=== PATIENT | female | born 1980 ===

== ENCOUNTER 2017-10-28 18:43 | Emergency (ER) | payer SELFPAY ==
[2017-10-28 18:54] VITALS: TEMP 98.2; O2SAT 100
--- NOTE | 2017-10-28 20:03 | ED PDOC ---
Upper Extremity Pain/Injury Time Seen by Provider: 10/28/17 19:42 Chief Complaint (Nursing): Upper Extremity Problem/Injury Chief Complaint (Provider): Right Arm Pain History Per: Patient Onset/Duration Of Symptoms: Days (x2 weeks) Current Symptoms Are (Timing): Still Present Additional Complaint(s): 37 y/o right hand dominant female presenting for evaluation of right sided neck and arm pain x2 weeks. 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 She reports the pain starts on the right side of her neck and radiates into right shoulder. She also reports taking Tylenol for pain, but says it did not provide adequate relief. No associated chest pain, SOB or BRADY. PMD: None Past Medical History Reviewed: Historical Data, Nursing Documentation, Vital Signs Vital Signs: Last Vital Signs Temp 98.2 F 10/28/17 18:51 Pulse 72 10/28/17 18:51 Resp 16 10/28/17 18:51 BP 117/76 10/28/17 18:51 Pulse Ox 100 10/28/17 18:51 - Medical History PMH: No Chronic Diseases - Surgical History Surgical History: No Surg Hx - Family History Family History: States: No Known Family Hx - Living Arrangements Living Arrangements: With Family - Social History Current smoker - smoking cessation education provided: No Alcohol: None Drugs: Denies - Home Medications Home Medications: Ambulatory Orders Medication Instructions Recorded Cyclobenzaprine [Cyclobenzaprine 10 mg PO TID PRN #20 tab 10/28/17 HCl] Naproxen [Naprosyn] 500 mg PO BID #20 tab 10/28/17 - Allergies Allergies/Adverse Reactions: Allergies Allergy/AdvReac Type Severity Reaction Status Date / Time No Known Allergies Allergy Verified 10/28/17 18:51 Review of Systems ROS Statement: Except As Marked, All Systems Reviewed And Found Negative Cardiovascular: Negative for: Chest Pain Respiratory: Negative for: Shortness of Breath, SOB with Exertion Musculoskeletal: Positive for: Neck Pain (right sided), Arm Pain (right) Neurological: Negative for: Headache, Dizziness Physical Exam - Reviewed Nursing Documentation Reviewed: Yes Vital Signs Reviewed: Yes - Physical Exam Appears: Positive for: Well, Non-toxic, No Acute Distress Head Exam: Positive for: ATRAUMATIC, NORMAL INSPECTION, NORMOCEPHALIC Skin: Positive for: Normal Color. Negative for: Rash Eye Exam: Positive for: Normal appearance Neck: Positive for: Supple. Negative for: Normal (tenderness and muscle spasms to the right lateral neck, full ROM with pain) Cardiovascular/Chest: Positive for: Regular Rate, Rhythm, Chest Non Tender Respiratory: Positive for: Normal Breath Sounds. Negative for: Wheezing, Respiratory Distress Back: Negative for: Vertebral Tenderness Extremity: Positive for: Normal ROM (full ROM of the right shoulder, elbow and wrist with no tenderness, swelling or sensory deficits). 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 Negative for: Motor/Sensory Deficits, Aphasia, Facial Droop - Laboratory Results Urine POC: Negative - ECG O2 Sat by Pulse Oximetry: 100 (RA) Pulse Ox Interpretation: Normal - Other Rad X-ray cervical spine and right shoulder x-rays X-Ray: Interpreted by Me, Viewed By Me X-Ray Interpretation: no fx, no dis Medical Decision Making Medical Decision Makin:13 Initial Impression: 42 y/o female with right sided neck and right shoulder pain Plan: --Toradol 30mg IM --Ultram 50mg PO --X-Ray Cervical spine --X-Ray Right shoulder Patient reports improvement to pain after meds given. She is aware of x-ray results, all questions answered. Rx naprosyn and flexeril given. Advised rest and follow up with clinic in 2-3 days. Sling declined. Scribe Attestation: Documented by Ahsan Senior, acting as a scribe for Aileen Amsellem, PA-C. Provider Scribe Attestation: All medical record entries made by the Scribe were at my direction and personally dictated by me. I have reviewed the chart and agree that the record accurately reflects my personal performance of the history, physical exam, medical decision making, and the department course for this patient. I have also personally directed, reviewed, and agree with the discharge instructions and disposition. Disposition - Clinical Impression Clinical Impression: Shoulder sprain, Neck sprain - Patient ED Disposition Is Patient to be Admitted: No Counseled Patient/Family Regarding: Studies Performed, Diagnosis, Need For Followup, Rx Given - Disposition Referrals: [facility] [Outside] Disposition: Routine/Home Disposition Time: 21:50 Condition: IMPROVED Additional Instructions: Rest affected area and avoid heavy lifting. Take prescription meds as directed as needed for pain. Follow-up in 2-3 days. Prescriptions: Cyclobenzaprine [Cyclobenzaprine HCl] 10 mg PO TID PRN #20 tab PRN Reason: Muscle Spasm Naproxen [Naprosyn] 500 mg PO BID #20 tab Instructions: Cervical Muscle Strain, Shoulder Sprain Forms: [employer] (Serbian), [facility] ED School/Work Excuse
[2017-10-28 22:07] VITALS: BP 117/64; PULSE 83; RESP 18
--- NOTE | 2017-10-29 10:43 | RAD ---
PROCEDURE: Radiographs of the Right Shoulder HISTORY: pain COMPARISON: No prior. FINDINGS: BONES: Normal. No fracture. JOINTS: Normal. Glenohumeral and acromioclavicular joints preserved. No osteoarthritis. SOFT TISSUES: Normal. OTHER FINDINGS: None. IMPRESSION: Normal radiographs of the right shoulder.
--- NOTE | 2017-10-29 10:45 | RAD ---
PROCEDURE: Cervical Spine Radiographs. HISTORY: Pain. COMPARISON: None. FINDINGS: BONES: Alignment maintained. No fracture. Dens Intact. Left C6 uncovertebral mild hypertrophy DISC SPACES: Normal. SOFT TISSUES: Normal. No prevertebral soft tissue swelling. OTHER FINDINGS: None. IMPRESSION: No fracture lytic lesion.Left C6 uncovertebral mild hypertrophy -consistent with mild early degenerative change
== END 2017-10-28 22:08 | disposition home or self-care (01) ==
LOC: H.ER 18:43
DX: S43.401A Unspecified sprain of right shoulder joint, initial encounter (principal); S13.9XXA Sprain of joints and ligaments of unspecified parts of neck, initial encounter; X50.9XXA Other and unspecified overexertion or strenuous movements or postures, initial encounter; Y99.0 Civilian activity done for income or pay
CPT/HCPCS: 72040; 73030; 81025; 96372; 99283; J1885

== ENCOUNTER 2017-12-16 16:28 | Emergency (ER) | payer SELFPAY ==
[2017-12-16 16:35] VITALS: BP 122/65; PULSE 88; RESP 14; O2SAT 100
[2017-12-16 16:40] VITALS: TEMP 98.8
--- NOTE | 2017-12-16 17:33 | ED PDOC ---
HPI: Abdomen Time Seen by Provider: 12/16/17 17:02 Chief Complaint (Nursing): Abdominal Pain Chief Complaint (Provider): Pelvic Pain History Per: Patient History/Exam Limitations: no limitations Onset/Duration Of Symptoms: Days (x 3) Quality Of Discomfort: Cramping, "Pain" Associated Symptoms: Loss Of Appetite (mild) Additional Complaint(s): 37 year old female presents to the ED with constant, cramping pelvic pain for the last 3 days associated with tingling sensation to b/l nipples and breast sensitivity. Patient reports she had an IUD placed in early November and intermittent vaginal bleeding since then with the last episode being 1 week ago. Denies vaginal discharge, bleeding, urinary symptoms and GI symptoms. Also reporting rash to chest for 3 weeks, multiple lesions and increasing. Itchy and red. PMD: [facility] Past Medical History Reviewed: Historical Data, Nursing Documentation, Vital Signs Vital Signs: Last Vital Signs Temp 98.8 F 12/16/17 16:34 Pulse 88 12/16/17 16:34 Resp 14 12/16/17 16:34 BP 122/65 12/16/17 16:34 Pulse Ox 100 12/16/17 18:41 - Medical History PMH: No Chronic Diseases - Surgical History Surgical History: No Surg Hx - Family History Family History: States: Unknown Family Hx - Social History Current smoker - smoking cessation education provided: No Alcohol: None Drugs: Denies - Immunization History Hx Tetanus Toxoid Vaccination: (Denies) - Home Medications Home Medications: Ambulatory Orders Medication Instructions Recorded Cyclobenzaprine [Cyclobenzaprine 10 mg PO TID PRN #20 tab 10/28/17 HCl] Naproxen [Naprosyn] 500 mg PO BID #20 tab 10/28/17 Clotrimazole 1% Cream [Lotrimin 1%] 1 appl TP BID #1 tube 12/16/17 Ketorolac Tromethamine [Toradol] 10 mg PO Q8 PRN #30 tab 12/16/17 - Allergies Allergies/Adverse Reactions: Allergies Allergy/AdvReac Type Severity Reaction Status Date / Time No Known Allergies Allergy Verified 10/28/17 18:51 Review of Systems ROS Statement: Except As Marked, All Systems Reviewed And Found Negative Gastrointestinal: Negative for: Diarrhea, Constipation, Hematochezia Genitourinary Female: Positive for: Pelvic Pain (associated with tingling sensation to b/l nipples and increases breast sensitivity). Negative for: Dysuria, Incontinence, Vaginal Discharge, Vaginal Bleeding Physical Exam - Reviewed Nursing Documentation Reviewed: Yes Vital Signs Reviewed: Yes - Physical Exam Appears: Positive for: Well, No Acute Distress Head Exam: Positive for: ATRAUMATIC, NORMAL INSPECTION, NORMOCEPHALIC Skin: Positive for: Warm, Dry, Rash (circular and scaly erythemaous lesions to RIGHT upper chest and LEFT shoulder) Eye Exam: Positive for: EOMI, PERRL ENT: Negative for: Pharyngeal Erythema, Tonsillar Exudate Neck: Positive for: Painless ROM, Supple Cardiovascular/Chest: Positive for: Regular Rate, Rhythm, Chest Non Tender. Negative for: Murmur Respiratory: Positive for: Normal Breath Sounds. Negative for: Wheezing Gastrointestinal/Abdominal: Positive for: Normal Exam, Soft, Tenderness (to palpation suprapubic area). Negative for: Mass, Guarding, Rebound Pelvic Exam: Positive for: External Exam Normal, Speculum Exam Normal, Tender Adnexa (left), Tender Uterus, Other (IUD strings visible in OS without bleeding) Back: Positive for: Normal Inspection. Negative for: Vertebral Tenderness Extremity: Positive for: Normal ROM. Negative for: Deformity Lymphatic: Negative for: Adenopathy Neurologic/Psych: Positive for: Alert, resistor coater II-XII (intact), Oriented (x3). Negative for: Motor/Sensory Deficits, Aphasia - ECG O2 Sat by Pulse Oximetry: 100 (RA) Pulse Ox Interpretation: Normal Medical Decision Making Medical Decision Making: Time: 17:11 Impression: Pelvic pain, tinea corporis Ddx include but not limited to adverse reaction to IUD, PID, Ovarian cyst, fibroid, IUD migration Initial Plan: --U preg --U dip --Chlamydia --Toradol 15 mg IM --Tylenol 975 mg PO --genital cx --Urine cx --UA --Transvag US Building Analyst/Supervisor for pelvic exam is FRANCES Merritt. Transvaginal US FINDINGS: UTERUS: Measures 7.1 x 4.0 x 5.0 cm. Normal in size and appearance. No fibroid or other mass lesion seen. ENDOMETRIUM: Measures 9 mm in diameter. Intrauterine device positioned centrally within the endometrial echo complex. CERVIX: No cervical abnormality identified. RIGHT OVARY: Measures 3.4 x 1.7 x 3.1 cm. No solid mass. Normal flow. LEFT OVARY: Measures 3.1 x 2.3 x 3.7 cm. No solid mass. Normal flow. FREE FLUID: No significant free fluid noted. OTHER FINDINGS: None. IMPRESSION: Intrauterine device appropriately positioned. Otherwise unremarkable examination. DW pt findings and plan of care. nsaids, lotrimin, f/u whc. Scribe Attestation: Documented by Juana Walden, acting as a scribe for Aileen Morrison MD Provider Scribe Attestation: All medical record entries made by the Scribe were at my direction and personally dictated by me. I have reviewed the chart and agree that the record accurately reflects my personal performance of the history, physical exam, medical decision making, and the department course for this patient. I have also personally directed, reviewed, and agree with the discharge instructions and disposition. Disposition - Clinical Impression Clinical Impression: Pelvic pain - Disposition [facility] ([facility]) Disposition: Routine/Home Disposition Time: 18:00 Condition: STABLE Prescriptions: Clotrimazole 1% Cream [Lotrimin 1%] 1 appl TP BID #1 tube Ketorolac Tromethamine [Toradol] 10 mg PO Q8 PRN #30 tab PRN Reason: PAIN Instructions: Ringworm (DC), Acute Pelvic Pain (DC), Intrauterine Devices (IUD) Forms: [employer] (Persian) Print Language: CROATIAN
[2017-12-16 17:53] LABS: SQUAMOUS EPITHIAL 10 /hpf (0-5); URINE BACTERIA RARE (<OCC); URINE BILIRUBIN NEGATIVE (NEGATIVE); URINE BLOOD NEGATIVE (NEGATIVE); URINE CLARITY CLOUDY (Clear); URINE COLOR YELLOW (YELLOW); URINE GLUCOSE (UA) NEG (Normal); URINE LEUKOCYTE ESTERASE SMALL Leu/uL (Negative); URINE PROTEIN NEGATIVE (NEGATIVE); URINE UROBILINOGEN 0.2-1.0 mg/dL (0.2-1.0)
--- NOTE | 2017-12-16 18:24 | US ---
HISTORY: pelvic pain recent IUD placement COMPARISON: None available. TECHNIQUE: 11/19/2010 FINDINGS: UTERUS: Measures 7.1 x 4.0 x 5.0 cm. Normal in size and appearance. No fibroid or other mass lesion seen. ENDOMETRIUM: Measures 9 mm in diameter. Intrauterine device positioned centrally within the endometrial echo complex. CERVIX: No cervical abnormality identified. RIGHT OVARY: Measures 3.4 x 1.7 x 3.1 cm. No solid mass. Normal flow. LEFT OVARY: Measures 3.1 x 2.3 x 3.7 cm. No solid mass. Normal flow. FREE FLUID: No significant free fluid noted. OTHER FINDINGS: None. IMPRESSION: Intrauterine device appropriately positioned. Otherwise unremarkable examination.
== END 2017-12-16 18:48 | disposition home or self-care (01) ==
LOC: H.ER 16:28
DX: R10.2 Pelvic and perineal pain (principal); N76.0 Acute vaginitis; B96.20 Unspecified Escherichia coli [E. coli] as the cause of diseases classified elsewhere; B35.4 Tinea corporis
CPT/HCPCS: 76830; 81003; 81025; 87070; 87086; 87181; 87491; 87591; 96372; 99283; J1885

== ENCOUNTER 2018-05-13 06:04 | Emergency (ER) | payer SELFPAY ==
[2018-05-13 06:19] VITALS: RESP 18
--- NOTE | 2018-05-13 06:38 | ED PDOC ---
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 denies: Fever, Chills, Nausea, Vomiting Additional Complaint(s): No PMHx presenting with epigastric pain x 1 month, worsened for the past 3 days, states it feels sharp, worse with food. States she also has intermittent diarrhea, watery, no blood. States also mild throbbing headache. States she only takes APAP for pain. Denies surgeries. PMD: None Past Medical History Reviewed: Historical Data, Nursing Documentation, Vital Signs Vital Signs: Last Vital Signs Temp 97.9 F 05/13/18 06:10 Pulse 76 05/13/18 06:10 Resp 18 05/13/18 06:10 BP 119/90 05/13/18 06:10 Pulse Ox 99 05/13/18 06:10 - Medical History PMH: No Chronic Diseases - Surgical History Surgical History: No Surg Hx - Family History Family History: States: Unknown Family Hx - Immunization History Hx Tetanus Toxoid Vaccination: (Denies) - Home Medications Home Medications: Ambulatory Orders Medication Instructions Recorded Cyclobenzaprine [Cyclobenzaprine 10 mg PO TID PRN #20 tab 10/28/17 HCl] Naproxen [Naprosyn] 500 mg PO BID #20 tab 10/28/17 Clotrimazole 1% Cream [Lotrimin 1%] 1 appl TP BID #1 tube 12/16/17 Ketorolac Tromethamine [Toradol] 10 mg PO Q8 PRN #30 tab 12/16/17 Famotidine [Pepcid] 20 mg PO BID #20 tab 05/13/18 Nitrofurantoin Macrocrystals 100 mg PO BID #14 cap 05/13/18 [Macrobid] - Allergies Allergies/Adverse Reactions: Allergies Allergy/AdvReac Type Severity Reaction Status Date / Time No Known Allergies Allergy Verified 05/13/18 06:16 Review of Systems ROS Statement: Except As Marked, All Systems Reviewed And Found Negative Gastrointestinal: Positive for: Abdominal Pain, Diarrhea Neurological: Positive for: Headache Physical Exam - Reviewed Nursing Documentation Reviewed: Yes Vital Signs Reviewed: Yes - Physical Exam Appears: Positive for: Well, Non-toxic, No Acute Distress Head Exam: Positive for: ATRAUMATIC, NORMAL INSPECTION, NORMOCEPHALIC Skin: Positive for: Normal Color, Warm, DRY Eye Exam: Positive for: EOMI, Normal appearance, PERRL ENT: Positive for: Normal ENT Inspection Neck: Positive for: Normal, Painless ROM Cardiovascular/Chest: Positive for: Regular Rate, Rhythm Respiratory: Positive for: CNT, Normal Breath Sounds Gastrointestinal/Abdominal: Positive for: Normal Exam, Soft, Tenderness (Tenderness in epigastric area), Other (Negative Kaiser, no RUQ tenderness) Back: Positive for: Normal Inspection Extremity: Positive for: Normal ROM Neurologic/Psych: Positive for: Alert, Oriented - ECG O2 Sat by Pulse Oximetry: 99 Pulse Ox Interpretation: Normal Medical Decision Making Medical Decision MakinAM Patient presenting with epigastric pain x 1 month --Very well appearing, normal vitals --Mild tenderness in epigastric area --DDx: gastritis, gas, GERD, less likely pancreatitis, gall bladder disease --Will give GI cocktail and re-eval for pain relief 07:00 --Signed out to Dr. Mathur pending reevaluation before discharge. Disposition - Clinical Impression Clinical Impression: Gastritis - Patient ED Disposition Is Patient to be Admitted: Transfer of Care - Disposition Referrals: [facility] [Outside] Disposition: Transfer of Care Disposition Time: 07:00 Condition: IMPROVED Additional Instructions: follow up in the clinic in 1-2 days for reevaluation. return to the ED with any worsening or concerning symptoms such as increased pain, vomiting or fever. Prescriptions: Famotidine [Pepcid] 20 mg PO BID #20 tab Nitrofurantoin Macrocrystals [Macrobid] 100 mg PO BID #14 cap Instructions: Urinary Tract Infections in Adults, Gastritis Forms: [employer] (Faroese) Print Language: PASHTO
[2018-05-13] MEDS ORDERED: Alum-Mag Hydrox-Simethicone Susp (30 mL) ONE (06:45)
[2018-05-13] MEDS: Alum-Mag Hydrox-Simethicone Susp (30 mL) PO ONE (06:48)
[2018-05-13 09:04] LABS: SQUAMOUS EPITHIAL 16 /hpf (0-5); URINE BACTERIA MOD (<OCC); URINE BILIRUBIN NEGATIVE (NEGATIVE); URINE BLOOD SMALL (NEGATIVE); URINE CLARITY CLOUDY (Clear); URINE COLOR YELLOW (YELLOW); URINE GLUCOSE (UA) NEG (Normal); URINE LEUKOCYTE ESTERASE LARGE Leu/uL (Negative); URINE PROTEIN NEGATIVE (NEGATIVE); URINE UROBILINOGEN 0.2-1.0 mg/dL (0.2-1.0)
--- NOTE | 2018-05-13 09:07 | ED PDOC ---
- ECG O2 Sat by Pulse Oximetry: 99 (RA) Pulse Ox Interpretation: Normal Medical Decision Making Medical Decision Makin:00- Naomi certified court interpreter #[id number] --Care endorsed to this provider by Dr. Woods pending CT and reevaluation. 08:50 --Upon reevaluation, the patient reports an improvement of symptoms. Pt tolerated po in the ED. upon initial eval, pt sleeping comfortably. The patient's UA show small leukocytes. 09:26 --Patient tolerated PO. She is stable and will be discharged with Pepcid and Macrobid. Given instructions on UTI treatment. Follow up with clinic in 1-2 days. return to the ED with any worsening or concerning symptoms such as increasing pain, vomiting or fever. Scribe Attestation: Documented by Juana Walden acting as a scribe for Kesha Mathur MD Provider Scribe Attestation: All medical record entries made by the Scribe were at my direction and personally dictated by me. I have reviewed the chart and agree that the record accurately reflects my personal performance of the history, physical exam, medical decision making, and the department course for this patient. I have also personally directed, reviewed, and agree with the discharge instructions and disposition. Disposition Counseled Patient/Family Regarding: Studies Performed, Diagnosis, Need For Followup - Clinical Impression Clinical Impression: Gastritis - POA Present On Arrival: None - Disposition Referrals: [facility] [Outside] Disposition: Routine/Home Disposition Time: 09:26 Condition: IMPROVED Additional Instructions: follow up in the clinic in 1-2 days for reevaluation. return to the ED with any worsening or concerning symptoms such as increased pain, vomiting or fever. Prescriptions: Famotidine [Pepcid] 20 mg PO BID #20 tab Nitrofurantoin Macrocrystals [Macrobid] 100 mg PO BID #14 cap Instructions: Urinary Tract Infections in Adults, Gastritis Forms: [employer] (Pashto) Print Language: LUXEMBOURGISH
[2018-05-13 09:38] VITALS: BP 118/75; PULSE 72; TEMP 98.5
[2018-05-13 09:40] VITALS: O2SAT 99
== END 2018-05-13 09:56 | disposition home or self-care (01) ==
LOC: H.ER 06:04
DX: K29.70 Gastritis, unspecified, without bleeding (principal)